=== PATIENT | female | born 1975 | race Caucasian/White ===

== ENCOUNTER 2019-05-18 19:59 | Emergency (ER) | payer BC ==
[2019-05-18 20:09] VITALS: BP 153/79
--- NOTE | 2019-05-18 20:24 | UC ---
- HPI Summary HPI Summary: 43 yo woman with breast biopsy today at 1 pm. She comes in tonight after removing the compressive dressing, which was blood soaked. On arrival she was noted to have elevated temp, and developed chills over the next half hour, with temp to 101. - Allergy/Home Medications Allergies/Adverse Reactions: Allergies Allergy/AdvReac Type Severity Reaction Status Date / Time amoxicillin Allergy Rash Verified 05/18/19 20:10 bee venom protein (honey bee) Allergy Dizziness Verified 05/18/19 20:10 PMH/Surg Hx/FS Hx/Imm Hx - Surgical History Surgical History: None - Social History Alcohol Use: Weekly Substance Use Type: Marijuana Substance Use Comment - Amount & Last Used: occasional Smoking Status (MU): Never Smoked Tobacco Review of Systems All Other Systems Reviewed And Are Negative: Yes Constitutional: Positive: Fever, Chills Skin: Positive: Bruising Eyes: Positive: Negative ENT: Positive: Negative Respiratory: Positive: Negative Cardiovascular: Positive: Negative Gastrointestinal: Positive: Negative Genitourinary: Positive: Negative Motor: Positive: Negative Neurovascular: Positive: Negative Musculoskeletal: Positive: Negative Neurological: Positive: Negative Psychological: Positive: Negative Is Patient Immunocompromised?: No Physical Exam Triage Information Reviewed: Yes Appearance: Ill-Appearing - mildly flushed., Pain Distress - mild to moderate Vital Signs: Initial Vital Signs Temp 100.2 F 05/18/19 20:03 Pulse 79 05/18/19 20:03 Resp 16 05/18/19 20:03 BP 153/79 05/18/19 20:03 Pulse Ox 100 05/18/19 20:03 Eye Exam: Normal ENT: Positive: Pharynx normal Neck: Positive: Supple, Nontender, No Lymphadenopathy Respiratory: Positive: Lungs clear, Normal breath sounds Cardiovascular: Positive: RRR, No Murmur Skin Exam: Other - left breast with approximately 8 cm ecchymosed area. Removed blood soaked gauze pads, replaced blood soaked steristrips. 2 puncture wounds no longer oozing. Forming hematoma under wound. Breast Pain Course/Dx - Course Course Of Treatment: cephalexin given infection risk Ibuprofen for pain control. Compression dressing to be removed. If increased temp persists and bleeding persists, aware to go to the emergency room for evaluation. - Differential Diagnoses Differential Diagnosis/HQI/PQRI: Other: - hematoma left breast; early cellulitis left breast - Diagnoses Provider Diagnoses: Posttraumatic hematoma of left breast Discharge ED - Sign-Out/Discharge Documenting (check all that apply): Patient Departure All imaging exams completed and their final reports reviewed: No Studies - Discharge Plan Condition: Stable Disposition: HOME Prescriptions: cephALEXin [Keflex] 500 mg PO TID #15 capsule Patient Education Materials: Hematoma (ED) Referrals: Zuly Brown MD [Primary Care Provider] - Additional Instructions: You have a hematoma of the left breast post biopsy. The active bleeding appears to have stopped. Please remove the compression wrap in about 2 hours. If there is continued bleeding, please proceed to the emergency room. You have been given a dose of cephalexin 1000mg for possible infection in the wound. If you have increasing fever or pain or develop new symptoms, please go to the emergency room overnight. I suggest a follow up call to your breast surgeon in the morning. - Billing Disposition and Condition Condition: STABLE Disposition: Home
[2019-05-18] MEDS ORDERED: Cephalexin CAP* 500 MG PO ONE (20:40)
== END 2019-05-18 21:00 | disposition home or self-care (01) ==
LOC: UCEAST 19:59
DX: L76.32 Postprocedural hematoma of skin and subcutaneous tissue following other procedure (principal); Z88.0 Allergy status to penicillin; Z91.030 Bee allergy status; Y84.8 Other medical procedures as the cause of abnormal reaction of the patient, or of later complication, without mention of misadventure at the time of the procedure
CPT/HCPCS: 99212; A9270-GY; G0463